=== PATIENT | male | born 1940 | race African-American/Black ===

== ENCOUNTER 2019-12-12 08:32 | Day surgery (SDC) | payer MEDICARE, OTHER ==
[~2019-12-12 08:32] MED LIST: BUPIVACAINE HCL 0.75% INJ/PF (7.5 MG/1 ML) 10 ML SDV OS PRN; FENTANYL CITRATE INJ/PF 100 MCG/2 ML AMPUL ONE; KETOROLAC TROMETHAMINE 0.45% 4 DROP/0.4 ML DROPERETTE OS PRN; LIDOCAINE 4% INJ/PF (40 MG/ML) 5 ML AMPUL OS PRN; MIDAZOLAM 2 MG/2 ML INJ ONE; ONDANSETRON HCL INJ/PF 4 MG/2 ML SDV ONE
[2019-12-12] MEDS: TROPICAMIDE 1% OPH SOLN 15 ML OS PRN ×3 (09:06→09:26)
[2019-12-12] MEDS: BESIFLOXACIN HCL 0.6% OPH SUSP 5 ML BOTTLE OS PRN ×4 (09:06→10:16)
[2019-12-12] MEDS: CYCLOPENTOLATE 0.2%/PHENYLEPHRINE 1% OPH SOLN 2 ML OS PRN ×3 (09:06→09:26)
[2019-12-12] MEDS: TETRACAINE HCL 0.5% OPH SOLN 4 ML OS PRN ×3 (09:07→09:50)
[2019-12-12] MEDS: EPINEPHRINE INJ/PF 1 MG/1 ML AMPULE ONE ×2 (10:01→10:04)
[2019-12-12] MEDS: LIDOCAINE 1% INJ-PF (10 MG/ML) 30 ML SDV ONE ×2 (10:01→10:04)
[2019-12-12] MEDS: CHONDR SU A NA/HYALUR INTRAOC KIT (SURGICARE) ONE ×2 (10:02→10:04)
[2019-12-12] MEDS: DORZOLAMIDE HCL 2%/TIMOLOL MALEAT 0.5% OPH SOLN 10 ML OS PRN ×2 (10:16)
--- NOTE | 2019-12-12 11:26 | Operative Report ---
Operative Report-[facility] Operative Report: DATE OF SURGERY: 12/12/2019 PREOPERATIVE DIAGNOSIS: CATARACT, LEFT EYE. POSTOPERATIVE DIAGNOSIS: CATARACT, LEFT EYE. PROCEDURE PERFORMED: PHACOEMULSIFICATION WITH POSTERIOR CHAMBER INTRAOCULAR LENS, LEFT EYE. Intraocular Lens Model : MX 60 E 22.0 Total Phaco Time: 7.6 CDE SURGEON: ARIELA MERAZ MD ANESTHESIA: TOPICAL WITH MAC. INDICATIONS FOR SURGERY: Difficultly driving at night and reading small print PROCEDURE: The patient was brought to the Operating Room and placed on the operative table. Following tetracaine drops, topical anesthesia was administered. This consisted of instrument wipe pledgets soaked in a solution of 4% Xylocaine mixed with 0.75% Marcaine in a 1:2 ratio. A 2 x 1 cm pledget was placed in the superior fornix. A 1 x 1 cm pledget was placed in the inferior fornix. The eye was patched shut for 5 minutes. The patch was removed. The eye was sterilely prepped and draped in the usual manner. Lid speculum was placed in the eye. The pledgets were removed. 4-0 black silk sutures were placed around the superior and the inferior rectus muscles to be used as traction. A conjunctival peritomy was made at the 10 o'clock position. Hemostasis was obtained with bipolar cautery. A posterior limbal groove was created using a crescent knife and dissected anteriorly towards the cornea. A sharp point blade was used to create a paracentesis site at the 2 o'clock position. 0.2 cc non preserved Lidocaine was injected into the anterior chamber. A 2.4 mm keratome was used to enter the anterior chamber through the groove. Viscoelastic was injected into the anterior chamber. An anterior capsulotomy was performed using Utrata forceps in a capsulorrhexis fashion. Hydrodissection and hydrodelineation were performed. Phacoemulsification was performed in [id number] technique. Following this, the I/A unit was used to remove residual cortex. Viscoelastic was injected into the capsular bag. The Intraocular lens was placed in the capsular bag. The I/A unit was used to remove residual viscoelastic. The wound was seen to be watertight under high and low pressure, and no sutures were placed. The intraocular lens was well centered. The pressure was adjusted in the eye to normal pressure. The 4-0 black silk sutures and lid speculum were removed. The eye was shielded after Besivance,prednisolone, and Cosopt drops were placed. The patient tolerated the procedure well and was sent to the Recovery Room in good condition.
== END 2019-12-12 10:49 | disposition home or self-care (01) ==
LOC: SC 08:32
PROVIDERS: ATTEND Ophthalmology
DX: H25.813 Combined forms of age-related cataract, bilateral (principal); H40.031 Anatomical narrow angle, right eye; H35.033 Hypertensive retinopathy, bilateral; H53.021 Refractive amblyopia, right eye; H52.4 Presbyopia; I10 Essential (primary) hypertension; E78.00 Pure hypercholesterolemia, unspecified; F17.210 Nicotine dependence, cigarettes, uncomplicated; Z79.899 Other long term (current) drug therapy; Z85.46 Personal history of malignant neoplasm of prostate
CPT/HCPCS: 66984; V2632; J2250; J3490 ×5; J0171; J2405; J3010

== ENCOUNTER 2020-01-02 09:41 | Day surgery (SDC) | payer OTHER ==
[~2020-01-02 09:41] MED LIST changes: +BUPIVACAINE HCL 0.75% INJ/PF (7.5 MG/1 ML) 10 ML SDV OD PRN; -BUPIVACAINE HCL 0.75% INJ/PF (7.5 MG/1 ML) 10 ML SDV OS PRN; +KETOROLAC TROMETHAMINE 0.45% 4 DROP/0.4 ML DROPERETTE OD PRN; -KETOROLAC TROMETHAMINE 0.45% 4 DROP/0.4 ML DROPERETTE OS PRN; +LIDOCAINE 4% INJ/PF (40 MG/ML) 5 ML AMPUL OD PRN; -LIDOCAINE 4% INJ/PF (40 MG/ML) 5 ML AMPUL OS PRN
[2020-01-02] MEDS: BESIFLOXACIN HCL 0.6% OPH SUSP 5 ML BOTTLE OD PRN ×4 (09:54→11:07)
[2020-01-02] MEDS: TROPICAMIDE 1% OPH SOLN 15 ML OD PRN ×3 (09:54→10:20)
[2020-01-02] MEDS: CYCLOPENTOLATE 0.2%/PHENYLEPHRINE 1% OPH SOLN 2 ML OD PRN ×3 (09:54→10:20)
[2020-01-02] MEDS: TETRACAINE HCL 0.5% OPH SOLN 4 ML OD PRN ×3 (09:54→10:34)
[2020-01-02] MEDS: CHONDR SU A NA/HYALUR INTRAOC KIT (SURGICARE) ONE ×2 (10:45→10:51)
[2020-01-02] MEDS: LIDOCAINE 1% INJ-PF (10 MG/ML) 30 ML SDV ONE ×2 (10:45→10:51)
[2020-01-02] MEDS: EPINEPHRINE INJ/PF 1 MG/1 ML AMPULE ONE ×2 (10:45→10:51)
[2020-01-02] MEDS: DORZOLAMIDE HCL 2%/TIMOLOL MALEAT 0.5% OPH SOLN 10 ML OD PRN ×2 (11:07)
--- NOTE | 2020-01-02 12:18 | Operative Report ---
Operative Report-[facility] Operative Report: DATE OF SURGERY: 01/02/2020 PREOPERATIVE DIAGNOSIS: CATARACT, RIGHT EYE. POSTOPERATIVE DIAGNOSIS: CATARACT, RIGHT EYE. PROCEDURE PERFORMED: PHACOEMULSIFICATION WITH POSTERIOR CHAMBER INTRAOCULAR LENS, RIGHT EYE. Intraocular Lens Model : MX60E 26.5 Total Phaco Time: 12.47 CDE SURGEON: ARIELA MERAZ MD ANESTHESIA: TOPICAL WITH MAC. INDICATIONS FOR SURGERY: Difficulty reading road signs. PROCEDURE: The patient was brought to the Operating Room and placed on the operative table. Following tetracaine drops, topical anesthesia was administered. This consisted of instrument wipe pledgets soaked in a solution of 4% Xylocaine mixed with 0.75% Marcaine in a 1:2 ratio. A 2 x 1 cm pledget was placed in the superior fornix. A 1 x 1 cm pledget was placed in the inferior fornix. The eye was patched shut for 5 minutes. The patch was removed. The eye was sterilely prepped and draped in the usual manner. Lid speculum was placed in the eye. The pledgets were removed. 4-0 black silk sutures were placed around the superior and the inferior rectus muscles to be used as traction. A conjunctival peritomy was made at the 10 o'clock position. Hemostasis was obtained with bipolar cautery. A posterior limbal groove was created using a crescent knife and dissected anteriorly towards the cornea. A sharp point blade was used to create a paracentesis site at the 2 o'clock position. 0.2 cc non preserved Lidocaine was injected into the anterior chamber. A 2.4 mm keratome was used to enter the anterior chamber through the groove. Viscoelastic was injected into the anterior chamber. An anterior capsulotomy was performed using Utrata forceps in a capsulorrhexis fashion. Hydrodissection and hydrodelineation were performed. Phacoemulsification was performed in [id number] technique. Following this, the I/A unit was used to remove residual cortex. Viscoelastic was injected into the capsular bag. The Intraocular lens was placed in the capsular bag. The I/A unit was used to remove residual viscoelastic. The wound was seen to be watertight under high and low pressure, and no sutures were placed. The intraocular lens was well centered. The pressure was adjusted in the eye to normal pressure. The 4-0 black silk sutures and lid speculum were removed. The eye was shielded after Besivance. prednisolone, and Cosopt drops were placed. The patient tolerated the procedure well and was sent to the Recovery Room in good condition.
== END 2020-01-02 11:45 | disposition home or self-care (01) ==
LOC: SC 09:41
PROVIDERS: ATTEND Ophthalmology
DX: H25.811 Combined forms of age-related cataract, right eye (principal); Z96.1 Presence of intraocular lens; H40.031 Anatomical narrow angle, right eye; H53.021 Refractive amblyopia, right eye; I10 Essential (primary) hypertension; E78.00 Pure hypercholesterolemia, unspecified; F17.210 Nicotine dependence, cigarettes, uncomplicated; Z79.82 Long term (current) use of aspirin; Z79.899 Other long term (current) drug therapy; Z85.46 Personal history of malignant neoplasm of prostate
CPT/HCPCS: 66984; V2632; J2250; J3490 ×5; J0171; J2405; J3010

== ENCOUNTER 2020-06-29 14:14 | Emergency (ER) | payer OTHER, MEDICARE ==
[2020-06-29] MEDS ORDERED: NORMAL SALINE 250 ML IV PRN ×11 (14:32→23:00)
[2020-06-29] MEDS ORDERED: PANTOPRAZOLE SODIUM 40 MG VIAL IV ONE (14:32)
[2020-06-29 14:39] LABS: ABSOLUTE BASOPHILS # (AUTO) 0.1 10^3/uL (0.0-0.2); ABSOLUTE EOSINOPHILS # (AUTO) 0.1 10^3/uL (0.0-0.6); ABSOLUTE LYMPHOCYTES (AUTO) 1.7 10^3/uL (0.5-4.7); ABSOLUTE MONOCYTES (AUTO) 0.8 10^3/uL (0.1-1.4); ABSOLUTE NEUT (AUTO) 14.9 10^3/uL (1.7-8.2); BASOPHILS % (AUTO) 0.8 % (0-2); EOSINOPHILS % (AUTO) 0.4 % (0-6); HEMATOCRIT 28.4 % (37.9-51.0); HEMOGLOBIN 9.3 g/dL (13.5-17.0); LYMPHOCYTES % (AUTO) 9.4 % (13-45); MEAN CORPUSCULAR HEMOGLOBIN 28.5 pg (27.0-33.4); MEAN CORPUSCULAR HGB CONC 32.9 g/dL (32.0-36.0); MEAN CORPUSCULAR VOLUME 87 fl (80-97); MONOCYTES % (AUTO) 4.7 % (3-13); PLATELET COUNT 216 10^3/uL (150-450); RED BLOOD COUNT 3.28 10^6/uL (4.35-5.55); RED CELL DISTRIBUTION WIDTH 15.7 % (11.5-14.0); SEGMENTED NEUTROPHILS % (AUTO) 84.7 % (42-78); TOTAL CELLS COUNTED % (AUTO) 100 %; WHITE BLOOD COUNT 17.6 10^3/uL (4.0-10.5)
[2020-06-29 14:44] LABS: INTERNATIONAL RATION (INR) 1.03; PROTHROMBIN TIME 13.7 SEC (11.4-15.4)
[2020-06-29 14:45] LABS: PARTIAL THROMBOPLASTIN TIME 24.8 SEC (23.5-35.8)
[2020-06-29] MEDS ORDERED: TRANEXAMIC ACID INJ/PF 1,000 MG/10 ML SDV IV ONE (14:45)
[2020-06-29] MEDS: RINGERS SOLUTION,LACTATED 1,000 ML IV PRN ×2 (14:54→15:50)
[2020-06-29 14:56] LABS: ALBUMIN 2.4 g/dL (3.5-5.0); ALKALINE PHOSPHATASE 68 U/L (38-126); ASPARTATE AMINO TRANSFERASE 20 U/L (17-59); BILIRUBIN,DIRECT 0.3 mg/dL (0.0-0.4); BILIRUBIN,TOTAL 0.3 mg/dL (0.2-1.3); BLOOD UREA NITROGEN 86 mg/dL (7-20); CALCIUM 8.8 mg/dL (8.4-10.2); CARBON DIOXIDE 22 mmol/L (22-30); CHLORIDE 108 mmol/L (98-107); CREATINE KINASE 48 U/L (55-170); GLUCOSE 131 mg/dL (75-110); POTASSIUM 5.2 mmol/L (3.6-5.0); TOTAL PROTEIN 4.9 g/dL (6.3-8.2)
[2020-06-29 14:57] LABS: ALCOHOL < 10 mg/dL (NONE DETECTED); ANION GAP 4 (5-19)
--- NOTE | 2020-06-29 16:42 | RADIOLOGY REPORT (SQ) ---
EXAM DESCRIPTION: CT HEAD WITHOUT IMAGES COMPLETED DATE/TIME: 06/29/2020 3:28 pm REASON FOR STUDY: falls/ lower GI bleed COMPARISON: None. TECHNIQUE: Axial images acquired through the brain without intravenous contrast. Images reviewed wi th bone, brain and subdural windows. Additional sagittal and coronal reconstructions were generated. Images stored on PACS. All CT scanners at this facility use dose modulation, iterative reconstruction, and/or weight based d osing when appropriate to reduce radiation dose to as low as reasonably achievable (ALARA). [facility]: Dose Right [facility]: CareDose [facility]: Dose Right [facility]: Teradose 4D [facility]: [employer] RADIATION DOSE: CT Rad equipment meets quality standard of care and radiation dose reduction techniq ues were employed. CTDIvol: 53.2 mGy. DLP: 964 mGy-cm. mGy. LIMITATIONS: None. FINDINGS: VENTRICLES: Normal size and contour. CEREBRUM: No masses. No hemorrhage. No midline shift. No evidence for acute infarction. Normal gra y-white matter differentiation. Moderate diffuse periventricular, deep, and subcortical white matter hypodense attenuation consistent with moderate chronic small vessel ischemic change. There is intra cranial atherosclerosis. CEREBELLUM: No masses. No hemorrhage. No alteration of density. No evidence for acute infarction. EXTRAAXIAL SPACES: No fluid collections. No masses. ORBITS AND GLOBE: No intra- or extraconal masses. Normal contour of globe without masses. CALVARIUM: No fracture. PARANASAL SINUSES: No fluid or mucosal thickening. SOFT TISSUES: No mass or hematoma. OTHER: No other significant finding. IMPRESSION: 1. No acute intracranial hemorrhage, mass, or evidence of acute territorial infarct. 2. Moderate chronic small vessel ischemic change and intracranial atherosclerosis. EVIDENCE OF ACUTE STROKE: NO. COMMENT: Quality ID # [id number]: Final reports with documentation of one or more dose reduction techniques (e.g., Automated exposure control, adjustment of the mA and/or kV according to patient size, use of iterative reconstruction technique) TECHNICAL DOCUMENTATION: JOB ID: [id number] 2010 [employer]- All Rights Reserved Reading location - IP/workstation name: [email or web address]
--- NOTE | 2020-06-29 16:53 | RADIOLOGY REPORT (SQ) ---
EXAM DESCRIPTION: CT CERVICAL SPINE WITHOUT IMAGES COMPLETED DATE/TIME: 06/29/2020 3:30 pm REASON FOR STUDY: falls/lower gi bleed COMPARISON: None. TECHNIQUE: Axial images acquired through the cervical spine without intravenous contrast. Images re viewed with lung, soft tissue and bone windows. Reconstructed coronal and sagittal MPR images review ed. Images stored on PACS. All CT scanners at this facility use dose modulation, iterative reconstruction, and/or weight based d osing when appropriate to reduce radiation dose to as low as reasonably achievable (ALARA). [facility]: Dose Right [facility]: CareDose [facility]: Dose Right [facility]: Teradose 4D [facility]: [employer] RADIATION DOSE: CT Rad equipment meets quality standard of care and radiation dose reduction techniq ues were employed. CTDIvol: 24.0 mGy. DLP: 428 mGy-cm. mGy. LIMITATIONS: None. FINDINGS: ALIGNMENT: Anatomic. MINERALIZATION: Normal. VERTEBRAL BODIES: No acute fracture or cortical disruption. Spondylosis with small marginal osteophy hannah. No lytic or blastic bone lesion. DISCS: Degenerative disc disease with loss of intervertebral disc height at multiple levels. No sign ificant disc bulges or spinal canal stenosis. FACETS, LATERAL MASSES, POSTERIOR ELEMENTS: There is multilevel facet arthropathy. No fractures. N o dislocation. No acute findings. HARDWARE: None in the spine. VISUALIZED RIBS: No fractures. LUNG APICES AND SOFT TISSUES: No significant or acute findings. OTHER: No other significant finding. IMPRESSION: Multilevel facet arthropathy, with mild degenerative disc disease and spondylosis. No a cute fracture or dislocation. TECHNICAL DOCUMENTATION: JOB ID: [id number] Quality ID # [id number]: Final reports with documentation of one or more dose reduction techniques (e.g., Au tomated exposure control, adjustment of the mA and/or kV according to patient size, use of iterative reconstruction technique) 2010 [employer]- All Rights Reserved Reading location - IP/workstation name: [email or web address]
[2020-06-29] MEDS ORDERED: RINGERS SOLUTION,LACTATED 1,000 ML IV ONE (17:06)
--- NOTE | 2020-06-29 17:09 | RADIOLOGY REPORT (SQ) ---
EXAM DESCRIPTION: CT ABD/PELVIS NO ORAL OR IV; CT CHEST WITHOUT IMAGES COMPLETED DATE/TIME: 06/29/2020 3:30 pm REASON FOR STUDY: lower gi bleed; falls/lower gi bleed COMPARISON: CT abdomen and pelvis, 03/28/2012 TECHNIQUE: CT scan of the chest performed without intravenous contrast using helical scanning techni que. Images reviewed with lung, soft tissue and bone windows. Reconstructed coronal and sagittal MPR images reviewed. All images stored on PACS. CT scan of the abdomen and pelvis performed without intravenous contrast and withoutoral contrast usi ng helical scanning technique with dynamic intravenous contrast injection. Images reviewed with lung , soft tissue and bone windows. Reconstructed coronal and sagittal MPR images reviewed. All images stored on PACS. All CT scanners at this facility use dose modulation, iterative reconstruction, and/or weight based d osing when appropriate to reduce radiation dose to as low as reasonably achievable (ALARA). [facility]: Dose Right [facility]: CareDose [facility]: Dose Right [facility]: Teradose 4D [facility]: [employer] RADIATION DOSE: CT Rad equipment meets quality standard of care and radiation dose reduction techniq ues were employed. CTDIvol: 11.4 - 15.1 mGy. DLP: 1289 mGy-cm. mGy. LIMITATIONS: No technical limitations. FINDINGS: CHEST: AXILLAE: No adenopathy. CHEST WALL: No masses. No subcutaneous air. LUNGS: The trachea has normal caliber and appearance. No bronchial wall thickening or bronchiectasis . Small amount of retained endobronchial secretions in the trachea. No focal consolidation or pleur al effusion. A 1 cm solid nodule in the left lower lobe is stable from 2012, consistent with benign postinflammatory nodule. Fat containing right Bochdalek hernia. No pneumothorax. . PLEURA: No pleural effusion or pneumothorax. THYROID: No masses or significant asymmetry. HILAR AND MEDIASTINAL STRUCTURES: No identified masses or abnormal nodes. AORTA AND GREAT VESSELS: The ascending thoracic aorta is mildly aneurysmal measuring maximum 4.1 cm d iameter. There is circumferential atherosclerotic calcification. Aortic arch and descending thoraci c aorta have normal caliber. Scattered calcified atherosclerotic plaque and calcification at the monse gin of the right brachiocephalic artery. No significant stenosis. HEART: Heart has normal size. Calcified coronary arteries. No pericardial effusion. HARDWARE AND LIFELINES: None. BONES: Acute minimally displaced fractures of the you have left lateral 4th- 10th ribs. OTHER: No other significant finding. ABDOMEN AND PELVIS: LIVER: Liver has normal size and contour. Circumscribed hepatic cyst in the high right hepatic dome is stable from prior. No suspicious hepatic mass however evaluation is somewhat limited due to lack of IV contrast. SPLEEN: Normal size. No focal lesions. PANCREAS: No masses. No significant calcifications. No adjacent inflammation or peripancreatic flui d collections. Pancreatic duct not dilated. GALLBLADDER: Gallstones. No inflammatory changes to suggest cholecystitis. ADRENAL GLANDS: Bilateral adrenal nodularity is stable from prior, probably benign adenomas. RIGHT KIDNEY AND URETER: Multiple renal cortical cysts and hyperdense renal cortical lesions probably hyperdense cysts. No definite solid mass. Renal vascular calcifications and punctate nonobstructin g renal calculi. No obstructing renal or ureteral calculus. No perinephric fluid. No hydronephro sis or hydroureter. LEFT KIDNEY AND URETER: Multiple exophytic renal cortical cysts and hyperdense renal cortical lesions also probably hyperdense proteinaceous/ hemorrhagic renal cortical cysts. No definite solid mass. Renal vascular calcifications. No obstructing or nonobstructing renal or ureteral calculi. No maru nephric fluid. No hydronephrosis or hydroureter. AORTA AND VESSELS: The abdominal aorta has normal caliber. There is extensive calcified atherosclero tic plaque. Atherosclerotic plaque is noted at the origins of the celiac, superior mesenteric, and b ilateral renal arteries. Bilateral common and external iliac arteries demonstrate extensive calcifie d atherosclerotic plaque. No periaortic fluid or inflammatory change. RETROPERITONEUM: No retroperitoneal adenopathy, hemorrhage or masses. APPENDIX: Normal. LARGE AND SMALL BOWEL: There is colonic diverticulosis without evidence of diverticulitis. Moderate stool in the rectum. No bowel wall thickening or inflammatory change. No mass. No bowel obstructio n. ABDOMINAL WALL: No hernia or masses. PERITONEAL CAVITY: No free air. No free fluid. No peritoneal implants or masses. PELVIS: Status post prostatectomy. Urinary bladder has normal contour. No pelvic adenopathy or mass . No fluid in the pelvis. BONES: No significant or acute findings. OTHER: No other significant finding. IMPRESSION: 1. Acute nondisplaced fractures of the left lateral 4th-10th ribs. No underlying pneumothorax. 2. 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 Nonobstruct ing left renal calculi. 3. Colonic diverticulosis without evidence of diverticulitis. 4. Extensive atherosclerosis. Mild ascending thoracic aortic aneurysm measuring maximum 4.1 cm. TECHNICAL DOCUMENTATION: JOB ID: [id number] Quality ID # [id number]: Final reports with documentation of one or more dose reduction techniques (e.g., Au tomated exposure control, adjustment of the mA and/or kV according to patient size, use of iterative reconstruction technique) 2010 [employer] All Rights Reserved Reading location - IP/workstation name: [email or web address]
[2020-06-29 17:20] LABS: ABSOLUTE BASOPHILS # (AUTO) 0.1 10^3/uL (0.0-0.2); ABSOLUTE LYMPHOCYTES (AUTO) 1.3 10^3/uL (0.5-4.7); ABSOLUTE MONOCYTES (AUTO) 0.7 10^3/uL (0.1-1.4); ABSOLUTE NEUT (AUTO) 12.9 10^3/uL (1.7-8.2); BASOPHILS % (AUTO) 0.4 % (0-2); EOSINOPHILS % (AUTO) 0.1 % (0-6); HEMATOCRIT 25.3 % (37.9-51.0); HEMOGLOBIN 8.6 g/dL (13.5-17.0); LYMPHOCYTES % (AUTO) 8.4 % (13-45); MEAN CORPUSCULAR HEMOGLOBIN 29.2 pg (27.0-33.4); MEAN CORPUSCULAR HGB CONC 33.9 g/dL (32.0-36.0); MEAN CORPUSCULAR VOLUME 86 fl (80-97); MONOCYTES % (AUTO) 4.5 % (3-13); PLATELET COUNT 192 10^3/uL (150-450); RED BLOOD COUNT 2.93 10^6/uL (4.35-5.55); RED CELL DISTRIBUTION WIDTH 15.5 % (11.5-14.0); SEGMENTED NEUTROPHILS % (AUTO) 86.6 % (42-78); TOTAL CELLS COUNTED % (AUTO) 100 %; WHITE BLOOD COUNT 14.9 10^3/uL (4.0-10.5)
[2020-06-29] MEDS ORDERED: NORMAL SALINE 1000 ML 1,000 ML IV ONE (18:18)
[2020-06-29] MEDS ORDERED: ONDANSETRON HCL INJ/PF 4 MG/2 ML SDV ONE (18:29)
[2020-06-29] MEDS ORDERED: ONDANSETRON HCL INJ/PF 4 MG/2 ML SDV IV ONE (18:30)
--- NOTE | 2020-06-29 19:33 | ER Document Report ---
Entered by JASMYN SOUZA SCRIBE 06/29/20 1423 Acting as scribe for:TERRI ALFREDO MD ED GI Bleed / Rectal Pain - General Stated Complaint: ABDOMINAL PAIN [facility] - Follow up as needed Mode of Arrival: Medic Information source: Patient, Emergency Med Personnel Notes: This 79 year old male patient brought in by EMS via emergency traffic presents to the ED today with complaints of bleeding per rectum that started prior to arrival. EMS reports that the patient was seen at a local urgent care x1 month ago due to a fall and had a left-sided rib fracture and was prescribed Tylenol 3. Per EMS, patient reported being constipated for the last x3 days and that he had a episode of diarrhea with dark red blood and clots present last night. Christine frank was reportedly walking to the shower this afternoon when he had a syncopal episode witnessed by his daughter. Patient then started bleeding dark red blood from rectum down to his ankles, so EMS was called. EMS reports that the patient lost approximately x500 ml of blood. EMS initiated transfusion of blood products and LR en route. Upon arrival to ED, patient received approximately 500 ml LR and 1/2 unit of blood. Rapid Covid test per EMS was negative. Patient notes that his currently taking Diclofenaac, Toradol, and baby aspirin. Denies taking any blood thinners. Patient denies headache, abdominal pain, or hematemesis. TRAVEL OUTSIDE OF THE [place] IN LAST 30 DAYS: No - Related Data Allergies/Adverse Reactions: No Known Allergies Allergy (Verified 12/25/19 14:11) Past Medical History - General Information source: Patient, [facility] Records - Social History Smoking Status: Unknown if Ever Smoked Smoking Education Provided: No Lives with: Alone Family History: Reviewed & Not Pertinent - Past Medical History Cardiac Medical History: Reports: Hx Hypercholesterolemia, Hx Hypertension Past Surgical History: Reports: Hx Orthopedic Surgery - right shoulder Review of Systems - Review of Systems Constitutional: No symptoms reported EENT: No symptoms reported Cardiovascular: See HPI, Syncope Respiratory: No symptoms reported Gastrointestinal: See HPI, Diarrhea, Constipation, Rectal bleeding. denies: Abdominal pain, Vomiting, Blood in vomit Genitourinary: No symptoms reported Male Genitourinary: No symptoms reported Musculoskeletal: No symptoms reported Skin: No symptoms reported Hematologic/Lymphatic: No symptoms reported Neurological/Psychological: See HPI. denies: Headaches -: Yes All other systems reviewed and negative Physical Exam - Vital signs Vitals: Resp 18 06/29/20 14:15 - General General appearance: Alert In distress: None - HEENT Head: Normocephalic, Atraumatic Eyes: Normal Extraocular movements intact: Yes Pupils: PERRL Neck: Normal, Supple - Respiratory Respiratory status: No respiratory distress Chest status: Nontender Breath sounds: Normal Chest palpation: Normal - Cardiovascular Rhythm: Regular Heart sounds: Normal auscultation Murmur: No - Abdominal Inspection: Normal Distension: No distension Bowel sounds: Normal Tenderness: Nontender - Abdomen soft Organomegaly: No organomegaly - Back Back: Normal, Nontender - Extremities General upper extremity: Normal inspection General lower extremity: Normal inspection. No: Edema - Neurological Neuro grossly intact: Yes Cognition: Normal Orientation: AAOx4 [place] Coma Scale Eye Opening: Spontaneous Alondra Coma Scale Verbal: Oriented [place] Coma Scale Motor: Obeys Commands [place] Coma Scale Total: 15 Speech: Normal Additional motor exam normals: Equal director it project - Psychological Associated symptoms: Normal affect, Normal mood - Skin Skin Temperature: Warm Skin Moisture: Dry Skin Color: Pale Course - Re-evaluation Re-evalutation: 06/29/20 18:28 Called to bedside by nurse. Patient's blood pressure dropped to 50 systolic. 2 units of emergency release blood were ordered from the blood bank 06/29/20 18:30 Transfer initiated to [facility] in [place]. ED front office secretary faxed demographic sheet and powershared the images. 06/29/20 18:52 I spoke with the patient's cousin, Dr. Christiano Medina, about his status. 06/29/20 22:02 Patient has repeated bouts of lower GI bleeding requiring further blood products packed red blood cells and and patient is currently working on his fourth unit of packed red blood cells at this time patient also has orders for fresh frozen plasma, platelets transfusion as well along with cryoprecipitate as well. Patient responds to IV fluid bolus and IV packed red blood cell transfusion with return of blood pressure and has been hemodynamically stable once he has received blood however he continues to bleed from his what appears to be a lower GI bleed. Case has been discussed with tremaine regarding the updates on the recurrence of lower GI bleed up to 4 units of packed red blood cells at this time. And they are aware of this condition. I have also requested that patient once bed assignment is made that he be transferred via helicopter. Also discussed case with local surgeon inasmuch as surgical intervention may be required is in a patient who has the need for 4 units of packed red blood cells at this time for transfusion for blood products due to GI hemorrhage. We discussed things that have not been done which is 1 patient has been too unstable to set him up to do an NG tube. Patient has no nausea vomiting or past history of ulcers and does take diclofenac for pain. And aspirin and if patient does have a upper GI bleed it has not shown itself in any nausea vomiting or hematemesis at this time. The bleeding we have noted is a current maroon blood that stick that it appears to be a lower GI bleed bleed based on that clinical sign. Dr. Hopkins also recommended that despite his kidney renal failure function that the only way will are where the exact bleed is coming from his to do a CT angiogram at least in order to determine where the bleed is coming from at this time. 06/29/20 22:27 Have been unable to insert NG tube inasmuch as patient cannot sit up without drop in his blood pressure at this time. 06/29/20 22:43 A discussion was had with the radiologist, Dr. Armenta who understood the need and the necessity for a CT angiogram of the abdomen and pelvis to identify specifically whether this lower GI bleed is occurring. Dr. Armenta agreed with the procedure to do a CT angiogram abdomen and pelvis with the understanding that patient has acute on chronic renal failure at this time. Patient has had 4 units of packed red blood cells and still has a bleeding problem at this time. This was discussed with patient as well as his daughter who is present in the room that inasmuch as we know and realize he has acute on chronic renal failure and contrast material IV may worsen his renal function it is in his best interest that we learn as much as we can exactly where his bleeding source is coming from inasmuch as it is continuing to bleed at this time which makes his case more critical until we learn exactly where the site is bleeding. Both patient and family member agree that the procedure was necessary and agreed to have it done. To our knowledge there is no allergy to iodine. - Vital Signs Vital signs: Temp Pulse Resp BP Pulse Ox 97.8 F 70 13 100/64 100 06/29/20 22:10 06/29/20 22:11 06/29/20 22:11 06/29/20 22:10 06/29/20 22:11 - Laboratory Results Result Diagrams: 06/29/20 19:41 06/29/20 14:23 Laboratory Results Interpreted: 06/29/20 06/29/20 06/29/20 14:23 14:23 14:23 WBC 17.6 H RBC 3.28 L Hgb 9.3 L Hct 28.4 L RDW 15.7 H Plt Count Lymph % (Auto) 9.4 L Absolute Neuts (auto) 14.9 H Seg Neutrophils % 84.7 H Sodium 134.2 L Potassium 5.2 H Chloride 108 H Anion Gap 4 L BUN 86 H Creatinine 3.45 H Est GFR ( Amer) 21 L Est GFR (MDRD) Non-Af 17 L Glucose 131 H POC Glucose Creatine Kinase 48 L Total Protein 4.9 L Albumin 2.4 L Crossmatch See Detail 06/29/20 06/29/20 06/29/20 16:47 18:29 19:41 WBC 14.9 H 10.6 H RBC 2.93 L 2.90 L Hgb 8.6 L 8.7 L Hct 25.3 L 25.0 L RDW 15.5 H 14.2 H Plt Count 118 L Lymph % (Auto) 8.4 L 11.7 L Absolute Neuts (auto) 12.9 H 8.5 H Seg Neutrophils % 86.6 H 80.9 H Sodium Potassium Chloride Anion Gap BUN Creatinine Est GFR ( Amer) Est GFR (MDRD) Non-Af Glucose POC Glucose 147 H Creatine Kinase Total Protein Albumin Crossmatch Globin 9.3 on arrival after lower GI bleed noted patient's hemoglobin dropped to 8.6. Patient also had a low blood pressure associated with a GI bleed and patient was transfused 2 units of packed red blood cells. After that hemoglobin was 8.7. Patient has had repeat bouts of lower GI bleed requiring further administration of blood products. 06/29/20 22:09 4018 3.4 patient has a creatinine of 3.45 and a BUN of 86. Critical Laboratory Results Reviewed: Yes Attending or Supervising Physician who Reviewed Labs: TERRI ALFREDO - Radiology Results Radiology Results Interpreted: 06/29/20 18:[address] 06/29/20 14:29 IMPRESSION: 1. No acute intracranial hemorrhage, mass, or evidence of acute territorial infarct. 2. Moderate chronic small vessel ischemic change and intracranial atherosclerosi s. EVIDENCE OF ACUTE STROKE: NO. Cervical Spine CT 06/29/20 14:30 IMPRESSION: Multilevel facet arthropathy, with mild degenerative disc disease and spondylosis. No acute fracture or dislocation. Chest CT 06/29/20 14:30 IMPRESSION: 1. Acute nondisplaced fractures of the left lateral 4th-10th ribs. No underlying pneumothorax. 2. 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 Nonobstructing left renal calculi. 3. Colonic diverticulosis without evidence of diverticulitis. 4. Extensive atherosclerosis. Mild ascending thoracic aortic aneurysm measuring maximum 4.1 cm. Abdomen/Pelvis CT 06/29/20 14:36 IMPRESSION: 1. Acute nondisplaced fractures of the left lateral 4th-10th ribs. No underlying pneumothorax. 2. 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 Nonobstructing left renal calculi. 3. Colonic diverticulosis without evidence of diverticulitis. 4. Extensive atherosclerosis. Mild ascending thoracic aortic aneurysm measuring maximum 4.1 cm. 06/29/20 22:[address] no acute intracranial hemorrhage mass or acute territorial infarct moderate chronic small vessel ischemic changes no evidence of stroke Cervical spine CT degenerative disease noted no acute fracture Chest CT acute nondisplaced fractures of the left fourth through 10th ribs no underlying pneumothorax multiple bilateral renal cortical cysts nonobstructing left renal calculi Abdominal pelvis CT nondisplaced fractures of the left fourth through 10th ribs multiple bilateral renal cortical hemorrhagic proteinaceous cyst nonobstructing left renal calculi colonic diverticulosis without diverticulitis extensive atherosclerosis mild ascending thoracic aortic aneurysm measuring 4.1 cm Critical Radiology Results Reviewed: No Critical Results Attending or Supervising Physician who Reviewed Radiology: TERRI ALFREDO - EKG Interpretation by Me Additional EKG results interpreted by me: 06/29/20 22:33 Twelve-lead EKG shows normal sinus rhythm rate of 72 with occasional PVC low voltage in the frontal leads abnormal T consider ischemia anterior lateral leads. Patient has a normal VT interval. Normal QRS interval and a normal QT interval. Patient has a normal axis. No signs of an acute STEMI. Critical Care Note - Critical Care Note Total time excluding time spent on procedures (mins): 90 - Monitoring hemodynamics cardiovascular ,heart rate, hemoglobin, lower GI bleed Discharge - Discharge Clinical Impression: GIH (gastrointestinal hemorrhage), Chronic renal failure, Multiple fractures of ribs, left side, initial encounter for closed fracture, Multiple falls Condition: Critical Disposition: [facility] [[facility]] - Follow up as needed I personally performed the services described in the documentation, reviewed and edited the documentation which was dictated to the scribe in my presence, and it accurately records my words and actions.
[2020-06-29 20:03] LABS: ABSOLUTE LYMPHOCYTES (AUTO) 1.2 10^3/uL (0.5-4.7); ABSOLUTE MONOCYTES (AUTO) 0.7 10^3/uL (0.1-1.4); ABSOLUTE NEUT (AUTO) 8.5 10^3/uL (1.7-8.2); BASOPHILS % (AUTO) 0.4 % (0-2); EOSINOPHILS % (AUTO) 0.1 % (0-6); HEMOGLOBIN 8.7 g/dL (13.5-17.0); LYMPHOCYTES % (AUTO) 11.7 % (13-45); MEAN CORPUSCULAR HGB CONC 34.7 g/dL (32.0-36.0); MEAN CORPUSCULAR VOLUME 86 fl (80-97); MONOCYTES % (AUTO) 6.9 % (3-13); PLATELET COUNT 118 10^3/uL (150-450); RED CELL DISTRIBUTION WIDTH 14.2 % (11.5-14.0); SEGMENTED NEUTROPHILS % (AUTO) 80.9 % (42-78); TOTAL CELLS COUNTED % (AUTO) 100 %; WHITE BLOOD COUNT 10.6 10^3/uL (4.0-10.5)
[2020-06-29 20:21] LABS: APPEARANCE,URINE CLEAR; BILIRUBIN,URINE NEGATIVE (NEGATIVE); COLOR,URINE YELLOW; GLUCOSE, URINE NEGATIVE (NEGATIVE); KETONES,URINE NEGATIVE (NEGATIVE); LEUKOCYTE ESTERASE,URINE NEGATIVE (NEGATIVE); NITRITE,URINE NEGATIVE (NEGATIVE); PROTEIN,URINE NEGATIVE (NEGATIVE); URINE SPECIFIC GRAVITY 1.016; UROBILINOGEN,URINE NEGATIVE mg/dL (<2.0)
[2020-06-29 20:42] LABS: URINE AMPHETAMINES SCREEN NEGATIVE; URINE BARBITURATES SCREEN NEGATIVE; URINE BENZODIAZEPINES SCREEN NEGATIVE; URINE COCAINE SCREEN NEGATIVE; URINE MARIJUANA (THC) SCREEN NEGATIVE; URINE METHADONE SCREEN NEGATIVE; URINE PHENCYCLIDINE SCREEN NEGATIVE
--- NOTE | 2020-06-29 22:37 | EKG REPORT ---
SEVERITY:- ABNORMAL ECG - SINUS RHYTHM VENTRICULAR PREMATURE COMPLEX LOW VOLTAGE IN FRONTAL LEADS ABNORMAL T, CONSIDER ISCHEMIA, ANT-LAT LEADS : Confirmed by: Asif Suggs MD 29-Jun-2020 22:36:31
[2020-06-30] MEDS ORDERED: NORMAL SALINE 1000 ML 1,000 ML IV ONE ×2 (00:52→00:54)
[2020-06-30 03:10] VITALS: BP 111/59
--- OUTSIDE RECORDS SUMMARY | 2020-07-02 10:29 | XMS REPORT ---
:1940 Author Organization [facility] Address [address] [address] Care Team Providers Name Role Phone Unavailable Unavailable Unavailable Allergies, Adverse Reactions, Alerts This patient has no known allergies or adverse reactions. Medications This patient has no known medications. Problems This patient has no known problems. Procedures This patient has no known procedures. Results This patient has no known results. Social History This patient has no known social history. Vital Signs This patient has no known vital signs.
== END 2020-06-29 23:39 | disposition short-term general hospital (02) ==
LOC: ER 14:14
DX: K57.31 Diverticulosis of large intestine without perforation or abscess with bleeding (principal); S22.42XA Multiple fractures of ribs, left side, initial encounter for closed fracture; W19.XXXA Unspecified fall, initial encounter; I12.9 Hypertensive chronic kidney disease with stage 1 through stage 4 chronic kidney disease, or unspecified chronic kidney disease; N18.9 Chronic kidney disease, unspecified; N17.9 Acute kidney failure, unspecified; I67.2 Cerebral atherosclerosis; R55 Syncope and collapse; R19.7 Diarrhea, unspecified; K59.00 Constipation, unspecified; M50.30 Other cervical disc degeneration, unspecified cervical region; M47.812 Spondylosis without myelopathy or radiculopathy, cervical region; Q61.02 Congenital multiple renal cysts; I71.2 Thoracic aortic aneurysm, without rupture; I49.3 Ventricular premature depolarization; N20.0 Calculus of kidney; Z79.82 Long term (current) use of aspirin; Z79.899 Other long term (current) drug therapy; Z79.1 Long term (current) use of non-steroidal anti-inflammatories (NSAID); Z20.822 Contact with and (suspected) exposure to COVID-19
CPT/HCPCS: 93005; 99285; 96361; 51702; 96374; 96375; 86900; 86901; 36415; 36430; 86850; 82962; 80307 ×2; 82550; 83605; 83690; 85025; 85610; 85730; 0241U; 80053; 81001; 84484; 86920; 70450; 71250; 72125; 74176; 93010; P9016; P9035; C9113; J2405; J7030; J7050; J7120; J3490; C9803